=== PATIENT | male | born 1995 | race Caucasian/White ===

== ENCOUNTER 2016-10-06 22:39 | Emergency (ER) | payer OTHER ==
[2016-10-06] MEDS ORDERED: NS 1,000 ML IV ONE ×2 (23:01)
[2016-10-06] MEDS ORDERED: ONDANSETRON 4 MG/2 ML VIAL IVP ONE (23:02)
[2016-10-06 23:18] LABS: ALANINE AMINOTRANSFERASE 32 IU/L (21-72); ALBUMIN 5.5 g/dL (3.5-5.0); ALKALINE PHOSPHATASE 75 IU/L (38-126); ANION GAP 21 mEq/L (8-16); ASPARTATE AMINOTRANSFERASE 32 IU/L (17-59); BILIRUBIN,TOTAL 1.3 mg/dL (0.1-1.4); BILIRUBIN-CONJUGATED 0.4 mg/dL (0.0-0.5); BILIRUBIN-UNCONJUGATED 0.9 mg/dL (0.0-1.1); CALCIUM 10.4 mg/dL (8.5-10.4); CARBON DIOXIDE 19 mEq/l (22-31); CHLORIDE 100 mEq/L (97-110); CREATININE 0.8 mg/dL (0.7-1.3); GLOMERULAR FILTRATION RATE > 60; GLUCOSE 222 mg/dL (70-100); POTASSIUM 3.3 mEq/L (3.5-5.2); SODIUM 140 mEq/L (134-144)
[2016-10-06 23:34] LABS: ADD MORPH? NO; ATYPICAL LYMPHOCYTE FLAG 0 (0-99); FRAGMENT RBC FLAG 0 (0-99); HEMATOCRIT 43.8 % (40.0-51.0); HEMOGLOBIN 15.8 g/dL (13.7-17.5); LEFT SHIFT FLG 0 (0-99); LIPEMIA HEMOLYSIS FLAG 90 (0-99); MEAN CELL HEMOGLOBIN 29.6 pg (27.9-34.1); MEAN CELL HEMOGLOBIN CONCENTR. 36.1 g/dL (32.4-36.7); MEAN CELL VOLUME 82.2 fL (81.5-99.8); MEAN PLATELET VOLUME 10.4 fL (8.7-11.7); PLATELET CLUMPS FLAG 0 (0-99); PLATELET COUNT 372 10^3/uL (150-400); RED BLOOD CELL COUNT 5.33 10^6/uL (4.40-6.38); RED CELL DISTRIBUTION WIDTH 12.8 % (11.5-15.2)
[2016-10-06] MEDS ORDERED: HALOPERIDOL LACT 5 MG/ML INJ IVP ONE (23:35)
[2016-10-06 23:42] LABS: ADD DIFF? YES; ADD SCAN? NO
--- NOTE | 2016-10-07 00:29 | EDPHY ---
H & P Stated Complaint: vomiting x2-3h after eating, epigastric pain, recent new meds HPI/ROS: Chief complaint: Abdominal pain History of present illness: This is a 21-year-old male, with a history of Crohn 's, cyclic vomiting syndrome, accompanied by his mother to the emergency department for evaluation of abdominal pain. Patient with the onset of symptoms earlier this evening. Patient primarily reports pain in the epigastric region although there is discomfort throughout the abdomen. He has had associated nausea and profuse vomiting. He does have Zofran at home to treat nausea and vomiting but he has not been able to keep it down. He denies other associated signs or symptoms including no fevers, no diarrhea or constipation, no urinary symptoms, no report of blood in vomit or stools recently. Mother is concerned this could be secondary to recently starting a topical acne cream that contains clindamycin. Review of systems: A 10 point review of systems was obtained and other than described above was negative - Personal History Current Tetanus/Diphtheria Vaccine: Yes Current Tetanus Diphtheria and Acellular Pertussis (TDAP): Yes Tetanus Vaccine Date: WITHIN 10 YRS - Medical/Surgical History Hx Asthma: No Hx Chronic Respiratory Disease: No Hx Diabetes: No Hx Cardiac Disease: No Hx Renal Disease: No Hx Cirrhosis: No Hx Alcoholism: No Hx HIV/AIDS: No Hx Splenectomy or Spleen Trauma: No Other PMH: Crohns dx, cyclic vomiting, hypospadias, anxiety, depression, drug dependence - Social History Smoking Status: Former smoker - Physical Exam Exam: General Appearance: Alert, nontoxic. Patient is actively throwing up. Eyes: Pupils equal and round no pallor or injection. ENT, Mouth: Mucous membranes moist. Respiratory: There are no retractions, lungs are clear to auscultation. Cardiovascular: Regular rate and rhythm. Gastrointestinal: Bowel sounds are normal. Abdomen is soft and nondistended. Diffuse tenderness. No peritoneal signs. Neurological: Alert and oriented x4. Strength and sensation intact and symmetrical. Skin: Warm and dry, no rashes. Musculoskeletal: Neck is supple non tender. Extremities are symmetrical, full range of motion. Psychiatric: Patient is oriented X 3, there is no agitation. Constitutional: Initial Vital Signs Heart Rate 81 10/06/16 22:39 Respiratory Rate 20 10/06/16 22:39 Blood Pressure 123/100 H 10/06/16 22:39 O2 Sat (%) 100 04/21/17 22:39 O2 Delivery Mode Room Air O2 (L/minute) 2 Allergies/Adverse Reactions: Penicillins Allergy (Verified 03/27/15 18:34) Sulfa (Sulfonamide Antibiotics) Allergy (Verified 03/27/15 18:34) Home Medications: Medication Instructions Recorded Humira 03/27/15 Citalopram 10/06/16 Medical Decision Making ED Course/Re-evaluation: Patient is discussed with my secondary supervising physician Dr. Sina Woodard. Patient presents to the emergency department with abdominal pain, nausea and vomiting. Vital signs are stable. Physical exam is benign. Blood studies are obtained and do reveal a severe leukocytosis. I have discussed with patient I would like to pursue a CT scan to ensure no further pathology is noted, he has declined. He is certainly competent to make this decision. He is symptomatically treated and states he is feeling much better. He would like to be discharged home. Patient is discharged home. Home care is discussed. He is given strict return precautions. Patient voiced understanding and agreement with plan. - Data Points Laboratory Results: Laboratory Results 10/06/16 23:00 10/06/16 23:00 10/06/16 10/06/16 23:00 23:00 WBC 31.18 10^3/uL H 10^3/uL (3.80-9.50) RBC 5.33 10^6/uL 10^6/uL (4.40-6.38) Hgb 15.8 g/dL g/dL (13.7-17.5) Hct 43.8 % % (40.0-51.0) MCV 82.2 fL fL (81.5-99.8) MCH 29.6 pg pg (27.9-34.1) MCHC 36.1 g/dL g/dL (32.4-36.7) RDW 12.8 % % (11.5-15.2) Plt Count 372 10^3/uL 10^3/uL (150-400) MPV 10.4 fL fL (8.7-11.7) Neut % (Auto) Not Reported Lymph % (Auto) Not Reported [place] % (Auto) Not Reported Eos % (Auto) Not Reported Baso % (Auto) Not Reported Nucleat RBC Rel Count 0.0 % % (0.0-0.2) Absolute Neuts (auto) Not Reported Absolute Lymphs (auto) Not Reported Absolute Monos (auto) Not Reported Absolute Eos (auto) Not Reported Absolute Basos (auto) Not Reported Absolute Nucleated RBC 0.00 10^3/uL 10^3/uL (0-0.01) Immature Gran % Not Reported Seg Neutrophils % 79 % % Band Neutrophils % 10 % % Lymphocytes % 4 % % Monocytes % 7 % % Eosinophils % 1 % % Immature Gran # Not Reported Absolute Seg Neuts 24.63 10^/uL H 10^/uL (1.70-6.50) Absolute Band Neuts 3.12 10^3/uL H 10^3/uL (0.00-0.70) Absolute Lymphocytes 1.25 10^3/uL 10^3/uL (1.00-3.00) Absolute Monocytes 2.18 10^3/uL H 10^3/uL (0.30-0.80) Absolute Eosinophils 0.31 10^3/uL 10^3/uL (0.03-0.40) Toxic Vacuolation PRESENT H Platelet Estimate ADEQUATE (ADEQ) Large Platelets PRESENT H Giant Platelets PRESENT H Smear Review By Pending Sodium 140 mEq/L mEq/L (134-144) Potassium 3.3 mEq/L L mEq/L (3.5-5.2) Chloride 100 mEq/L mEq/L (97-110) Carbon Dioxide 19 mEq/l L mEq/l (22-31) Anion Gap 21 mEq/L H mEq/L (8-16) BUN 17 mg/dL mg/dL (7-23) Creatinine 0.8 mg/dL mg/dL (0.7-1.3) Estimated GFR > 60 Glucose 222 mg/dL H mg/dL (70-100) Calcium 10.4 mg/dL mg/dL (8.5-10.4) Total Bilirubin 1.3 mg/dL mg/dL (0.1-1.4) Conjugated Bilirubin 0.4 mg/dL mg/dL (0.0-0.5) Unconjugated Bilirubin 0.9 mg/dL mg/dL (0.0-1.1) AST 32 IU/L IU/L (17-59) ALT 32 IU/L IU/L (21-72) Alkaline Phosphatase 75 IU/L IU/L (38-126) Total Protein 9.0 g/dL H g/dL (6.3-8.2) Albumin 5.5 g/dL H g/dL (3.5-5.0) Lipase 50.0 IU/L IU/L (23-300) Medications Given: Discontinued Medications Diphenhydramine HCl (Benadryl Injection) 25 mg IVP EDNOW ONE Stop: 10/06/16 23:36 Last Admin: 10/06/16 23:50 Dose: 25 mg Haloperidol Lactate (Haldol Injection) 5 mg IVP EDNOW ONE Stop: 10/06/16 23:36 Last Admin: 10/06/16 23:50 Dose: 5 mg Sodium Chloride (Ns) 1,000 mls @ 0 mls/hr IV ONCE ONE PRN Reason: Wide Open Stop: 10/06/16 23:02 Last Admin: 10/06/16 23:10 Dose: 1,000 mls Sodium Chloride (Ns) 1,000 mls @ 0 mls/hr IV ONCE ONE PRN Reason: Wide Open Stop: 10/06/16 23:02 Last Admin: 10/06/16 23:11 Dose: 1,000 mls Ondansetron HCl (Zofran) 4 mg IVP EDNOW ONE Stop: 10/06/16 23:03 Last Admin: 10/06/16 23:11 Dose: 4 mg Departure - Departure Disposition: Home, Routine, Self-Care Clinical Impression: Abdominal pain Qualifiers: Abdominal location: generalized Qualified Code(s): R10.84 - Generalized abdominal pain Condition: Good Instructions: Acute Abdominal Pain (ED) Additional Instructions: Follow-up with your primary care doctor for continued evaluation and care You were offered a CT scan of your abdomen and pelvis for further evaluation of your symptoms, you declined If symptoms worsen or new symptoms develop return to the emergency room for recheck Referrals: Marisol Aldridge MD [Primary Care Provider] - As per Instructions
[2016-10-07 00:30] LABS: GIANT PLATELETS PRESENT
[2016-10-07 00:37] LABS: LARGE PLATELETS PRESENT; PLATELET ESTIMATE ADEQUATE (ADEQ); TOXIC VACUOLIZATION PRESENT
[2016-10-07 00:55] VITALS: BP 132/82; PULSE 79; RESP 16; TEMP 97.7; O2SAT 94
== END 2016-10-07 00:55 | disposition home or self-care (01) ==
DX: R10.84 Generalized abdominal pain (principal); Z87.891 Personal history of nicotine dependence
CPT/HCPCS: 96374; J1200; J2405

== ENCOUNTER 2016-10-08 10:57 | Emergency (ER) | payer OTHER ==
[2016-10-08 11:10] VITALS: TEMP 98.1
[2016-10-08] MEDS ORDERED: NS 1,000 ML IV ONE ×2 (11:11→11:19)
[2016-10-08] MEDS ORDERED: ONDANSETRON 4 MG/2 ML VIAL IVP ONE (11:11)
[2016-10-08] MEDS ORDERED: LORazepam 2 MG/ML INJ IVP ONE ×2 (11:20→12:30)
[2016-10-08] MEDS ORDERED: LORazepam 2 MG/ML INJ ONE (11:20)
[2016-10-08 11:25] LABS: % IMMATURE GRANULYOCYTES 0.4 % (0.0-1.1); ABSOLUTE IMMATURE GRANULOCYTES 0.07 10^3/uL (0.00-0.10); ADD DIFF? NO; ADD MORPH? NO; ADD SCAN? NO; ATYPICAL LYMPHOCYTE FLAG 10 (0-99); FRAGMENT RBC FLAG 0 (0-99); HEMATOCRIT 44.9 % (40.0-51.0); HEMOGLOBIN 16.1 g/dL (13.7-17.5); LEFT SHIFT FLG 0 (0-99); LIPEMIA HEMOLYSIS FLAG 90 (0-99); MEAN CELL HEMOGLOBIN 29.7 pg (27.9-34.1); MEAN CELL HEMOGLOBIN CONCENTR. 35.9 g/dL (32.4-36.7); MEAN CELL VOLUME 82.7 fL (81.5-99.8); MEAN PLATELET VOLUME 10.2 fL (8.7-11.7); PLATELET CLUMPS FLAG 0 (0-99); PLATELET COUNT 350 10^3/uL (150-400); RED BLOOD CELL COUNT 5.43 10^6/uL (4.40-6.38)
--- NOTE | 2016-10-08 11:28 | EDPHY ---
H & P Time Seen by Provider: 10/08/16 11:09 HPI/ROS: CHIEF COMPLAINT: Vomiting, abdominal pain HISTORY OF PRESENT ILLNESS: 21-year-old male presents to the emergency department with multiple episodes of vomiting over last 48 hours. Patient has a history of Crohn's disease and believes that this is a "Chron's flare." Patient was diagnosed with Crohn's disease 3 years ago. He had similar symptoms May of 2016. Patient was seen in the emergency department on Sunday, 2 days ago was found to have leukocytosis with white blood cell count of over 31,000. The provider recommended CT imaging of the abdomen pelvis and the patient declined. The patient went home. The mother talked with his account executive key accounts who recommended that he come back to the emergency department immediately. The mother was also concerned that this may have something to do with a recent topical medication that was started recently for acne that contains clindamycin. He has had no diarrhea. No fevers or chills. He takes Humira for Crohn's disease and has been compliant. REVIEW OF SYSTEMS: Constitutional: No fever, no chills. Eyes: No double or blurry vision. ENT: No sore throat. Respiratory: No cough, no shortness of breath. Cardiac: No chest pain. Gastrointestinal: Diffuse abdominal pain and vomiting. No diarrhea Genitourinary: No dysuria. Musculoskeletal: No neck or back pain. Skin: No rashes. Neurological: No headache. Past Medical/Surgical History: Crohn's disease diagnosed 3 years ago, anxiety, depression, substance abuse including "everything" 2 years ago, marijuana use Social History: Single Smoking Status: Former smoker Physical Exam: General Appearance: Alert, moderate to severe distress. Temperature 36.7, actively vomiting and appears very uncomfortable. Mother and father at bedside. Eyes: Pupils equal and round. Extraocular motions are all intact. ENT: Mouth: Mucous membranes moist. Respiratory: No wheezing, rhonchi, or rales, lungs are clear to auscultation. Cardiovascular: Regular rate and rhythm. Gastrointestinal: Abdomen is soft. Tenderness with palpation diffusely to palpate the abdomen. There is no rebound, guarding or masses noted. Patient is voluntarily guarding. Neurological: Alert and oriented x 3, cranial nerves II through XII grossly intact Skin: Warm and dry, no rashes. Musculoskeletal: Nontender to palpate along the cervical, thoracic or lumbar spine. Neck is supple. Extremities: Full range of motion and no peripheral edema. Psychiatric: Patient is oriented X 3, there is no agitation. Constitutional: Initial Vital Signs Temperature (C) 36.7 C 10/08/16 11:03 Heart Rate 88 10/08/16 11:03 Respiratory Rate 20 10/08/16 11:03 Blood Pressure 153/95 H 10/08/16 11:03 O2 Sat (%) 97 10/08/16 11:03 O2 Delivery Mode Room Air Allergies/Adverse Reactions: Penicillins Allergy (Verified 10/08/16 11:02) Sulfa (Sulfonamide Antibiotics) Allergy (Verified 10/08/16 11:02) Home Medications: Medication Instructions Recorded Humira 03/27/15 Citalopram 10/06/16 LORazepam [Ativan] 1 mg PO Q6-8PRN PRN #10 tab 10/08/16 Medical Decision Making - Diagnostics Imaging Results: Imaging Impressions Abdomen CT 10/08/16 11:41 Impression: 1. Normal CT abdomen and pelvis with contrast enhancement. 2. No CT evidence of appendicitis, abscess or bowel obstruction. 3. No abnormal thickening is identified associated with bowel loops. Oral contrast, however, was not utilized. Findings discussed with Jena Waggoner PA-C at 12:35 hour, 10/08/2016. ED Course/Re-evaluation: 21-year-old male presents to the emergency department with multiple episodes of vomiting over last 48 hours. The patient was seen in the emergency department 2 days ago with elevated white blood cell count of over 31,000. It was recommended that he had a CT scan of the abdomen and pelvis, however the patient declined. The patient returns with his mother with continued vomiting. He has been using Zofran at home without relief. The patient believes that he is having a Crohn's flare up. He has no diarrhea. He has diffuse abdominal pain and is actively vomiting. Vomited very little however and just continues to forcefully retch. He does use marijuana. He denies alcohol. I discussed the pros and cons of CT imaging of the abdomen and pelvis including radiation exposure and the patient agreed. CT imaging of the abdomen pelvis was normal. The patient was given a total of 2 mg of Ativan IV and IV Zofran. He received 2 L of IV normal saline and 40 mg of Protonix IV. The patient will be discharged home. He was tolerating p.o. fluids. He was encouraged to schedule follow-up appointment with Dr. Kuhn. He was instructed to return if he had any recurring symptoms of vomiting or any other concerns. Differential Diagnosis: Including but not limited to dehydration, cyclical vomiting syndrome, hyperemesis cannabinoid syndrome, anxiety, bowel obstruction, Crohn's disease - Data Points Laboratory Results: Laboratory Results 10/08/16 11:10 10/08/16 11:10 10/08/16 10/08/16 11:10 11:10 WBC 15.68 10^3/uL H D 10^3/uL (3.80-9.50) RBC 5.43 10^6/uL 10^6/uL (4.40-6.38) Hgb 16.1 g/dL g/dL (13.7-17.5) Hct 44.9 % % (40.0-51.0) MCV 82.7 fL fL (81.5-99.8) MCH 29.7 pg pg (27.9-34.1) MCHC 35.9 g/dL g/dL (32.4-36.7) RDW 13.0 % % (11.5-15.2) Plt Count 350 10^3/uL 10^3/uL (150-400) MPV 10.2 fL fL (8.7-11.7) Neut % (Auto) 71.1 % % (39.3-74.2) Lymph % (Auto) 19.9 % % (15.0-45.0) [place] % (Auto) 8.2 % % (4.5-13.0) Eos % (Auto) 0.3 % L % (0.6-7.6) Baso % (Auto) 0.1 % L % (0.3-1.7) Nucleat RBC Rel Count 0.0 % % (0.0-0.2) Absolute Neuts (auto) 11.14 10^3/uL H 10^3/uL (1.70-6.50) Absolute Lymphs (auto) 3.12 10^3/uL H 10^3/uL (1.00-3.00) Absolute Monos (auto) 1.28 10^3/uL H 10^3/uL (0.30-0.80) Absolute Eos (auto) 0.05 10^3/uL 10^3/uL (0.03-0.40) Absolute Basos (auto) 0.02 10^3/uL 10^3/uL (0.02-0.10) Absolute Nucleated RBC 0.00 10^3/uL 10^3/uL (0-0.01) Immature Gran % 0.4 % % (0.0-1.1) Immature Gran # 0.07 10^3/uL 10^3/uL (0.00-0.10) Sodium 142 mEq/L mEq/L (134-144) Potassium 3.9 mEq/L mEq/L (3.5-5.2) Chloride 103 mEq/L mEq/L (97-110) Carbon Dioxide 20 mEq/l L mEq/l (22-31) Anion Gap 19 mEq/L H mEq/L (8-16) BUN 14 mg/dL mg/dL (7-23) Creatinine 0.8 mg/dL mg/dL (0.7-1.3) Estimated GFR > 60 Glucose 123 mg/dL H mg/dL (70-100) Calcium 10.3 mg/dL mg/dL (8.5-10.4) Total Bilirubin 2.0 mg/dL H D mg/dL (0.1-1.4) Conjugated Bilirubin 0.4 mg/dL mg/dL (0.0-0.5) Unconjugated Bilirubin 1.6 mg/dL H mg/dL (0.0-1.1) AST 31 IU/L IU/L (17-59) ALT 38 IU/L IU/L (21-72) Alkaline Phosphatase 64 IU/L IU/L (38-126) Total Protein 8.7 g/dL H g/dL (6.3-8.2) Albumin 5.3 g/dL H g/dL (3.5-5.0) Lipase 71.0 IU/L IU/L (23-300) Medications Given: Discontinued Medications Sodium Chloride (Ns) 1,000 mls @ 0 mls/hr IV ONCE ONE PRN Reason: Wide Open Stop: 10/08/16 11:12 Last Admin: 10/08/16 11:17 Dose: 1,000 mls Sodium Chloride (Ns) 1,000 mls @ 0 mls/hr IV ONCE ONE PRN Reason: Wide Open Stop: 10/08/16 11:20 Last Admin: 10/08/16 11:26 Dose: 1,000 mls Pantoprazole Sodium 40 mg/ (Sodium Chloride) 100 mls @ 200 mls/hr IV EDNOW ONE Stop: 10/08/16 13:36 Last Admin: 10/08/16 13:27 Dose: 100 mls Lorazepam (Ativan Injection) 1 mg IVP EDNOW ONE Stop: 10/08/16 11:21 Last Admin: 10/08/16 11:26 Dose: 1 mg Lorazepam (Ativan Injection) 1 mg IVP EDNOW ONE Stop: 10/08/16 12:31 Last Admin: 10/08/16 12:33 Dose: 1 mg Ondansetron HCl (Zofran) 4 mg IVP EDNOW ONE Stop: 10/08/16 11:12 Last Admin: 10/08/16 11:18 Dose: 4 mg Departure - Departure Disposition: Home, Routine, Self-Care Clinical Impression: Abdominal pain Qualifiers: Abdominal location: generalized Qualified Code(s): R10.84 - Generalized abdominal pain Vomiting Qualifiers: Vomiting type: unspecified Vomiting Intractability: non-intractable Nausea presence: with nausea Qualified Code(s): R11.2 - Nausea with vomiting, unspecified Condition: Good Instructions: Acute Nausea and Vomiting (ED), Abdominal Pain (ED) Additional Instructions: Ativan as needed for symptoms of recurring vomiting. Schedule appointment with your account executive key accounts. Abdominal Pain: Return to the Emergency Department immediately for increasing pain, fever, vomiting, or if not completely better in 8-12 hours. Referrals: Marisol Aldridge MD [Primary Care Provider] - As per Instructions Prescriptions: LORazepam [Ativan] 1 mg PO Q6-8PRN PRN #10 tab PRN Reason: Nausea/Vomiting, Use 1st
[2016-10-08 11:37] LABS: ALANINE AMINOTRANSFERASE 38 IU/L (21-72); ALBUMIN 5.3 g/dL (3.5-5.0); ALKALINE PHOSPHATASE 64 IU/L (38-126); ANION GAP 19 mEq/L (8-16); ASPARTATE AMINOTRANSFERASE 31 IU/L (17-59); BILIRUBIN-CONJUGATED 0.4 mg/dL (0.0-0.5); BILIRUBIN-UNCONJUGATED 1.6 mg/dL (0.0-1.1); CALCIUM 10.3 mg/dL (8.5-10.4); CARBON DIOXIDE 20 mEq/l (22-31); CHLORIDE 103 mEq/L (97-110); CREATININE 0.8 mg/dL (0.7-1.3); GLOMERULAR FILTRATION RATE > 60; GLUCOSE 123 mg/dL (70-100); POTASSIUM 3.9 mEq/L (3.5-5.2); SODIUM 142 mEq/L (134-144); TOTAL PROTEIN 8.7 g/dL (6.3-8.2)
[2016-10-08] MEDS ORDERED: IOPAMIDOL (ISOVUE-300) 100 ML BTL IV ONE (12:00)
[2016-10-08 12:31] VITALS: BP 136/89; RESP 16
[2016-10-08] MEDS ORDERED: PANTOPRAZOLE SODIUM 40 MG in NS 100 ML IV ONE (13:07)
[2016-10-08 13:29] VITALS: O2SAT 96
[2016-10-08 15:15] VITALS: PULSE 81
== END 2016-10-08 15:15 | disposition home or self-care (01) ==
DX: R10.84 Generalized abdominal pain (principal); R11.2 Nausea with vomiting, unspecified; Z87.891 Personal history of nicotine dependence
CPT/HCPCS: 96374; J2060; J2405; Q9967